=== PATIENT | female | born 1945 | race Caucasian/White ===

== ENCOUNTER 2019-11-30 10:20 | Outpatient (CLI) | payer MEDICARE, SELFPAY ==
--- NOTE | ~2019-11-30 | MM_ITS ---
EXAMINATION: MM screening felipe BI w misa HISTORY: Screening TECHNIQUE: Craniocaudal and mediolateral oblique 3-D tomosynthesis images were obtained and synthetic 2-D images were generated. CAD analysis was submitted and interpreted. COMPARISON: 09/21/2018 BREAST PARENCHYMAL COMPOSITION: There are scattered areas of fibroglandular density. FINDINGS: There is no evidence of suspicious mass, calcification, or architectural distortion to sugg est malignancy in either breast. There has been no suspicious interval change. IMPRESSION: 1. No mammographic evidence of malignancy. 2. Recommend routine screening mammography in one year. BI-RADS Category 1: Negative Reviewed, dictated and finalized at location A.
== END 2019-11-30 10:21 | disposition home or self-care (01) ==
LOC: ANHIMG 10:25
PROVIDERS: PCP Family Medicine; Visit Provider Nurse Practitioner Family
DX: Z12.31 Encounter for screening mammogram for malignant neoplasm of breast (principal)
CPT/HCPCS: 77063; 77067

== ENCOUNTER 2022-06-26 00:57 | Emergency (ER) | payer MEDICARE, SELFPAY ==
--- NOTE | 2022-06-26 01:14 | ED.GENADULT ---
HPI - General Adult General Chief complaint: Cardiac Arrest/CPR Stated complaint: CARDIAC ARREST Time Seen by Provider: 06/26/22 01:14 History of Present Illness HPI narrative: 76-year-old female presenting in cardiac arrest. EMS was called to her house because she was in respiratory distress. When they arrived she was lethargic and then went into cardiac arrest. Proximally 15 minutes of CPR was performed before the patient arrived in the emergency department. She was given 3 rounds of epi. She had a paced rhythm throughout the rest with no return of pulses. Related Data Home Medications Medication Instructions Recorded Confirmed albuterol sulfate 90 mcg/actuation 2 puff inhalation Q4-6H PRN 04/15/19 10/31/19 aerosol inhaler (ProAir HFA) alprazolam 1 mg tablet 1 mg PO .COMPLEX 04/15/19 10/31/19 apixaban 5 mg tablet (Eliquis) 5 mg PO BID 04/15/19 10/31/19 ascorbate calcium (vitamin C) 500 500 mg PO DAILY 04/15/19 10/31/19 mg tablet carvedilol 3.125 mg tablet 3.125 mg PO BID 04/15/19 10/31/19 cholecalciferol (vitamin D3) 125 5,000 unit PO DAILY 04/15/19 10/31/19 mcg (5,000 unit) tablet (Vitamin D3) digoxin 125 mcg (0.125 mg) tablet 125 mcg PO DAILY 04/15/19 10/31/19 (Digox) ipratropium 20 mcg-albuterol 100 1 puff inhalation Q4H 04/15/19 10/31/19 mcg/actuation mist for inhalation (Combivent Respimat) losartan 100 mg tablet 100 mg PO DAILY 04/15/19 10/31/19 magnesium oxide 400 mg (241.3 mg 800 mg PO BID 04/15/19 10/31/19 magnesium) tablet (MagOx) nitroglycerin 0.4 mg sublingual 0.4 mg sublingual Q5M PRN 04/15/19 10/31/19 tablet (Nitrostat) potassium 99 mg tablet See Rx Instructions .Route .COMPLEX 04/15/19 10/31/19 spironolactone 25 mg tablet 25 mg PO DAILY 04/15/19 10/31/19 venlafaxine 150 mg 150 mg PO DAILY 04/15/19 10/31/19 capsule,extended release 24 hr verapamil 240 mg tablet,extended 240 mg PO BID 04/15/19 10/31/19 release zolpidem 10 mg tablet 10 mg PO QPM 04/15/19 10/31/19 Allergies Allergy/AdvReac Type Severity Reaction Status Date / Time enoxaparin Allergy Unknown reaction Verified 10/31/19 11:00 morphine Allergy Unknown reaction Verified 10/31/19 11:00 moxifloxacin Allergy Unknown reaction Verified 10/31/19 11:00 ASPIRIN (Generic Allergy) Allergy Unknown allergic Uncoded 10/31/19 11:00 reaction SALICYLATES Allergy Unknown reaction Uncoded 10/31/19 11:00 PMFSH Past Medical History Medical History CHF (congestive heart failure) Follows with Cardiology - Dr Lu Chronic bilateral low back pain without sciatica COPD (chronic obstructive pulmonary disease) Follows with pulmonary - [facility] Coronary artery disease Depression with anxiety Essential (primary) hypertension History of atrial fibrillation Cardiac ablation - 2017 History of kidney cancer Partial LT kidney resection ~2003 Hx of acute poliomyelitis ~1946 Hyperlipidemia Peripheral neuropathy Pneumonia Prediabetes Vertigo Surgical History Surgical History H/O gastric bypass Hx of tonsillectomy 1953 Family History Family History Father Hypertension Cerebrovascular accident Family history of hypercholesterolemia Mother Cerebrovascular accident Family history of hypercholesterolemia Hypertension Grandparent Family history of coronary artery disease Diabetes mellitus Family history of malignant neoplasm of breast Sibling Family history of hypercholesterolemia Social History Social History Smoking status: Never smoker Alcohol intake: never Exam Narrative: APPEARANCE: nonresponsive, CPR in progress Head: atraumatic. EYES: pupils fixed and dilated NOSE: Atraumatic NECK: Trachea midline RESPIRATORY: no respiratory effort CARDIOVASCULAR: no pulses
--- NOTE | 2022-06-26 01:45 | PC.NURSE ---
Called [facility] coroner, spoke with Anibal. Need to ask family if there have been any traumatic events, how her health has been recently, if she's been c/o chest pain or SOB, who her PCP is, and which home.
--- NOTE | 2022-06-26 02:04 | PC.NURSE ---
[facility]S called. Spoke with Danelle. States she will screen all information and call back if pt is eligible for donation. Ref number [id number].
--- NOTE | 2022-06-26 02:11 | PC.NURSE ---
Massiel from [facility] called back and said we can release her.
--- NOTE | 2022-06-26 02:30 | PC.NURSE ---
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
--- NOTE | 2022-06-26 02:50 | PC.NURSE ---
Called Dr. Palmer's after hours to have him paged at this time.
--- NOTE | 2022-06-26 02:52 | PC.NURSE ---
[facility] notified
== END 2022-06-26 01:14 | disposition expired ==
PROVIDERS: Emergency Provider Emergency Medicine
DX: I46.9 Cardiac arrest, cause unspecified (principal); I50.9 Heart failure, unspecified; J44.9 Chronic obstructive pulmonary disease, unspecified; I25.10 Atherosclerotic heart disease of native coronary artery without angina pectoris; I11.0 Hypertensive heart disease with heart failure; I48.91 Unspecified atrial fibrillation; E78.5 Hyperlipidemia, unspecified; G62.9 Polyneuropathy, unspecified; R73.03 Prediabetes; Z87.01 Personal history of pneumonia (recurrent); Z86.12 Personal history of poliomyelitis; Z85.528 Personal history of other malignant neoplasm of kidney; Z98.84 Bariatric surgery status
CPT/HCPCS: 31500; 92950; 99291; J0171; J2310; J7030